=== PATIENT | male | born 1960 | race Caucasian/White ===

== ENCOUNTER 2018-02-19 22:04 | Emergency (ER) | payer BC ==
[~2018-02-19] VITALS: Ht 188 cm; Wt 113.6 kg
[2018-02-19 22:05] VITALS: TEMP 98.7
[2018-02-19 22:16] LABS: BASO # 0.1 (0.0-0.2); BASO % 0.8 % (0.0-2.0); EOS # 0.5 (0.0-0.7); EOS % 4.3 % (0-4.0); GRAN # 5.8 (1.4-6.5); GRAN % 49.7 % (42.2-75.2); HEMOGLOBIN 13.4 g/dl (13.5-18.0); LYMPH # 4.5 (1.2-3.4); LYMPH % 38.6 % (20.0-51.0); MEAN CELL VOLUME 86 fl (80.0-100.0); MEAN CORPUSCULAR HEMOGLOBIN 31 pg (27.0-31.0); MEAN CORPUSCULAR HGB CONC 36 g/dl (33.0-37.0); MEAN PLATELET VOLUME 9.7 fl (7.4-10.4); MONO # 0.7 (0.1-0.6); MONO % 6.3 % (1.7-9.3); PLATELET COUNT 227 K/mm3 (130-400); RED BLOOD COUNT 4.28 M/mm3 (4.20-5.60); REDCELL DISTRIBUTION WIDTH-CV 11.4 % (11.5-14.5)
[2018-02-19 22:18] LABS: INR 1.2 (0.8-3.0)
[2018-02-19 22:19] LABS: HEMATOCRIT 36.8 % (42.0-52.0)
[2018-02-19 22:23] LABS: ALBUMIN 2.8 gm/dL (3.5-5.0); BILIRUBIN,TOTAL 0.6 mg/dL (0.0-1.0); CALCIUM 7.2 mg/dL (8.4-10.2); CREATININE, serum 0.86 mg/dL (0.66-1.25); TOTAL PROTEIN 5.2 gm/dL (6.4-8.2)
[2018-02-19 22:25] LABS: POTASSIUM 2.7 mmol/L (3.4-5.0)
[2018-02-19 23:13] VITALS: BP 180/103; PULSE 78
== END 2018-02-19 23:15 | disposition short-term general hospital (02) ==
LOC: COL.ER 22:04
PROVIDERS: Emergency Medicine
DX: S82.492A Other fracture of shaft of left fibula, initial encounter for closed fracture (principal); S41.011A Laceration without foreign body of right shoulder, initial encounter; S20.211A Contusion of right front wall of thorax, initial encounter; T79.A22A Traumatic compartment syndrome of left lower extremity, initial encounter; E11.9 Type 2 diabetes mellitus without complications; I10 Essential (primary) hypertension; V23.4XXA Motorcycle driver injured in collision with car, pick-up truck or van in traffic accident, initial encounter
CPT/HCPCS: J3010; J7120

== ENCOUNTER 2018-06-07 11:00 | Outpatient (RCR) | payer BC | END 2018-08-10 | disposition home or self-care (01) | LOC: MKS.ESL.PT | DX: S82.401D Unspecified fracture of shaft of right fibula, subsequent encounter for closed fracture with routine healing (principal); T79.A0XD Compartment syndrome, unspecified, subsequent encounter; M50.00 Cervical disc disorder with myelopathy, unspecified cervical region; V29.9XXD Motorcycle rider (driver) (passenger) injured in unspecified traffic accident, subsequent encounter; Z79.1 Long term (current) use of non-steroidal anti-inflammatories (NSAID); Z79.82 Long term (current) use of aspirin; Z79.891 Long term (current) use of opiate analgesic; Z79.899 Other long term (current) drug therapy ==

== ENCOUNTER 2018-10-25 10:15 | Outpatient (RCR) | payer BC | END 2018-11-16 | disposition home or self-care (01) | LOC: MKS.ESL.PT | DX: Z47.89 Encounter for other orthopedic aftercare (principal); Z98.1 Arthrodesis status | CPT/HCPCS: G0283-GP ==

== ENCOUNTER 2019-02-17 00:21 | Emergency (ER) | payer BC ==
[~2019-02-17] VITALS: Ht 180.3 cm; Wt 118.2 kg
[2019-02-17 00:31] VITALS: TEMP 97.9
[2019-02-17] MEDS ORDERED: TOPROL XL 50MG50 MG PO (00:49)
[2019-02-17] MEDS ORDERED: GLUCOPHAGE XR500 M1 PO (00:49)
[2019-02-17] MEDS ORDERED: PRINIVIL20 MG PO (00:50)
[2019-02-17] MEDS ORDERED: ZOCOR 20MG20 MG PO (00:50)
[2019-02-17 00:58] LABS: BASO # 0.1 (0.0-0.2); BASO % 0.9 % (0.0-2.0); EOS # 0.4 (0.0-0.7); EOS % 4.1 % (0-4.0); GRAN # 4.1 (1.4-6.5); GRAN % 45.4 % (42.2-75.2); HEMATOCRIT 44.6 % (42.0-52.0); HEMOGLOBIN 15.8 g/dl (13.5-18.0); LYMPH # 3.6 (1.2-3.4); LYMPH % 40.4 % (20.0-51.0); MEAN CELL VOLUME 85 fl (80.0-100.0); MEAN CORPUSCULAR HEMOGLOBIN 30 pg (27.0-31.0); MEAN CORPUSCULAR HGB CONC 35 g/dl (33.0-37.0); MEAN PLATELET VOLUME 9.9 fl (7.4-10.4); MONO # 0.8 (0.1-0.6); MONO % 8.9 % (1.7-9.3); PLATELET COUNT 221 K/mm3 (130-400); RED BLOOD COUNT 5.23 M/mm3 (4.20-5.60)
[2019-02-17 01:02] LABS: PROTHROMBIN TIME 11.8 SECONDS (9.7-12.8)
[2019-02-17 01:04] LABS: ALANINE AMINOTRANSFERASE 14 U/L (21-72); ALBUMIN 4.4 gm/dL (3.5-5.0); ALKALINE PHOSPHATASE 67 U/L (50-136); ANION GAP 13 mmol/L (7-16); AST,SGOT 22 U/L (15-37); BILIRUBIN,TOTAL 0.6 mg/dL (0.0-1.0); BLOOD UREA NITROGEN 15 mg/dL (9-20); CALCIUM 9.4 mg/dL (8.4-10.2); CARBON DIOXIDE 24 mmol/L (22-30); CHLORIDE 101 mmol/L (98-107); CREATININE, serum 0.93 (0.66-1.25); GLUCOSE 197 mg/dL (74-106); SODIUM 139 mmol/L (137-145); TOTAL PROTEIN 7.9 gm/dL (6.4-8.2)
[2019-02-17 01:19] LABS: TROPONIN-I < 0.012 ng/mL (0.000-0.035)
[2019-02-17 05:03] VITALS: BP 131/79; PULSE 85
== END 2019-02-17 05:04 | disposition home or self-care (01) ==
LOC: COL.ER 00:21
PROVIDERS: Emergency Medicine
DX: R10.13 Epigastric pain (principal); E11.9 Type 2 diabetes mellitus without complications; I10 Essential (primary) hypertension; E78.5 Hyperlipidemia, unspecified; Z79.84 Long term (current) use of oral hypoglycemic drugs
CPT/HCPCS: J2270; J2765; Q9967

== ENCOUNTER → 2019-04-07 | Outpatient (CLI) | payer BC ==
[~2019-04-07] MED LIST: GLUCOPHAGE XR500 M1 PO; MOTRIN 600600 MG/TAB PO; PRINIVIL20 MG PO; TOPROL XL 50MG50 MG PO; ULTRAM 50MG TAB50 MG PO; ZANAFLEX 4MG TAB4 MG PO; ZOCOR 20MG20 MG PO
== END ==
LOC: COL.RAD 09:21
DX: R93.2 Abnormal findings on diagnostic imaging of liver and biliary tract (principal); R10.13 Epigastric pain

== ENCOUNTER 2019-04-12 08:08 | Day surgery (SDC) | payer BC ==
[2019-04-12] VITALS (8 sets, daily range): BP systolic 127–144; BP diastolic 56–70; PULSE 54–75; TEMP 98.3–98.4
[~2019-04-12] VITALS: Ht 180.3 cm; Wt 123.9 kg
[~2019-04-12 08:08] MED LIST changes: -MOTRIN 600600 MG/TAB PO; -ULTRAM 50MG TAB50 MG PO; -ZANAFLEX 4MG TAB4 MG PO
[2019-04-12] MEDS ORDERED: ZANAFLEX 4MG TAB4 MG PO (08:31)
--- NOTE | 2019-04-12 09:54 | NUR ---
Report given to TANNING CONSULTANTMIRACLE Russo, who takes patient to the OR at this time.
[2019-04-12] MEDS ORDERED: MOTRIN 600600 MG/TAB PO (12:21)
[2019-04-12] MEDS ORDERED: ULTRAM 50MG TAB50 MG PO (12:23)
--- NOTE | 2019-04-12 13:05 | NUR ---
Patient arrives to [facility] via cart from PACU, accompanied by PIPE CLEANER Magui. He is sleepy, but arousable to name and oriented. His operative sites x 5 are clean, dry, intact. Abdomen is soft and tender. He denies any pain or nausea at this time. His is brought to the bedside for recovery. Post-operative vital signs started - VSS and WNL on 2L nasal cannula. Will continue to monitor.
--- NOTE | 2019-04-12 13:20 | NUR ---
VSS and WNL on 2 L nasal cannula. Patient is sleeping.
--- NOTE | 2019-04-12 13:35 | NUR ---
VSS and WNL on room air. Patient is resting comfortably in room.
--- NOTE | 2019-04-12 13:50 | NUR ---
Patient offered and receives water to drink. Denies food at this time.
--- NOTE | 2019-04-12 14:20 | NUR ---
Patient resting comfortably in room. VSS and WNL on room air.
--- NOTE | 2019-04-12 14:50 | NUR ---
Oxygen turned off. VSS and WNL on room air.
--- NOTE | 2019-04-12 15:57 | NUR ---
Assisted patient to restroom with use of cane and standby assist at 1540. Patient voids and returns to room. Complains of nausea and mild pain in abdomen. Given PRN IV Zofran.
--- NOTE | 2019-04-12 15:58 | NUR ---
Report given to Radha Post RN at this time.
--- NOTE | 2019-04-12 16:30 | NUR ---
Eating jello and crackers. States that he is continuing to have mild nausea. Spouse at side.
--- NOTE | 2019-04-12 16:40 | NUR ---
Tolerated crackers and jello. Given Motrin 600mg po.
--- NOTE | 2019-04-12 17:06 | NUR ---
Patient was given dismissal instructions and voices understanding of these. Provided scripts for Ultram and Motrin. Provided office number for questions and concerns. Dismissed to home per private vehicle driven by spouse and taken to the front door per wheelchair by Janet RAUSCH and assisted into vehicle.
== END 2019-04-12 17:03 | disposition home or self-care (01) ==
LOC: SDCO 08:08
DX: K80.10 Calculus of gallbladder with chronic cholecystitis without obstruction (principal); E11.9 Type 2 diabetes mellitus without complications; I10 Essential (primary) hypertension; K76.0 Fatty (change of) liver, not elsewhere classified; Z79.84 Long term (current) use of oral hypoglycemic drugs; Z82.5 Family history of asthma and other chronic lower respiratory diseases; Z82.49 Family history of ischemic heart disease and other diseases of the circulatory system; Z88.5 Allergy status to narcotic agent; Z88.0 Allergy status to penicillin
CPT/HCPCS: J0330; J0690; J1100; J1610; J1815; J1885; J2405; J2550; J2704; J3010; J7120; Q9967

== ENCOUNTER 2019-12-05 12:45 | Outpatient (RCR) | payer BC ==
[~2019-12-05 12:45] MED LIST changes: +MOTRIN 600600 MG/TAB PO; +ULTRAM 50MG TAB50 MG PO; +ZANAFLEX 4MG TAB4 MG PO
== END 2019-12-07 | disposition still patient (30) ==
LOC: WSPT
DX: G57.92 Unspecified mononeuropathy of left lower limb (principal); V29.9XXA Motorcycle rider (driver) (passenger) injured in unspecified traffic accident, initial encounter

== ENCOUNTER 2019-12-08 08:17 | Outpatient (RCR) | payer BC ==
[~2019-12-08 08:17] MED LIST changes: -TOPROL XL 50MG50 MG PO; +TOPROL XL100 MG PO
[2020-02-09] MEDS ORDERED: FLEXERIL 1010 MG/TAB PO (21:43)
== END 2020-03-07 | disposition home or self-care (01) ==
LOC: WSPT
DX: G57.92 Unspecified mononeuropathy of left lower limb (principal); V29.9XXA Motorcycle rider (driver) (passenger) injured in unspecified traffic accident, initial encounter

== ENCOUNTER 2020-02-09 20:29 | Emergency (ER) | payer BC ==
[~2020-02-09] VITALS: Ht 180.3 cm; Wt 129.5 kg
[2020-02-09 20:32] VITALS: BP 197/93; TEMP 98.2
[2020-02-09] MEDS ORDERED: FLEXERIL 1010 MG/TAB PO (21:43)
[2020-02-09 21:56] VITALS: PULSE 75
== END 2020-02-09 21:56 | disposition home or self-care (01) ==
LOC: COL.ER 20:29
DX: S13.4XXA Sprain of ligaments of cervical spine, initial encounter (principal); E11.9 Type 2 diabetes mellitus without complications; I10 Essential (primary) hypertension; Z79.84 Long term (current) use of oral hypoglycemic drugs; V43.52XA Car driver injured in collision with other type car in traffic accident, initial encounter

== ENCOUNTER 2021-07-08 20:10 | Inpatient (IN) | payer BC ==
[~2021-07-08] VITALS: Ht 177.8 cm; Wt 125.0 kg
[~2021-07-08 20:10] MED LIST changes: +FLEXERIL 1010 MG/TAB PO
[2021-07-08 21:08] LABS: BASO % 0.3 % (0.0-2.0); EOS # 0.1 K/mm3 (0.0-0.7); EOS % 0.4 % (0-4.0); GRAN # 9.7 K/mm3 (1.4-6.5); GRAN % 86.6 % (42.2-75.2); HEMATOCRIT 45.6 % (42.0-52.0); HEMOGLOBIN 16.3 g/dl (13.5-18.0); LYMPH # 0.7 K/mm3 (1.2-3.4); LYMPH % 6.3 % (20.0-51.0); MEAN CELL VOLUME 85 fl (80.0-100.0); MEAN CORPUSCULAR HEMOGLOBIN 31 pg (27.0-31.0); MEAN CORPUSCULAR HGB CONC 36 g/dl (33.0-37.0); MEAN PLATELET VOLUME 10.1 fl (7.4-10.4); MONO # 0.7 K/mm3 (0.1-0.6); MONO % 5.9 % (1.7-9.3); PLATELET COUNT 127 K/mm3 (130-400); RED BLOOD COUNT 5.34 M/mm3 (4.20-5.60)
[2021-07-08 21:31] LABS: ALBUMIN 4.1 gm/dL (3.5-5.0); BILIRUBIN,TOTAL 1.1 mg/dL (0.2-1.2); CALCIUM 9.2 mg/dL (8.4-10.2); CREATININE, serum 1.36 mg/dL (0.72-1.25); POTASSIUM 3.5 mmol/L (3.5-4.5); TOTAL PROTEIN 7.6 gm/dL (6.2-8.1)
[2021-07-08] MEDS ORDERED: TRULICITY1.5 MG/0.5 SQ (23:43)
[2021-07-09] VITALS (11 sets, daily range): BP systolic 112–186; BP diastolic 44–93; PULSE 83–109; TEMP 97.8–102.1
[2021-07-09] MEDS ORDERED: HCTZ 25MG TAB25 MG PO (01:58)
--- NOTE | 2021-07-09 02:22 | NUR ---
Vancomycin Initial Dosing Pharmacy Note Ordering provider: Sang Monsivais MD Indication/duration: LLE CELLULITIS / 5 DAYS Trough goal: 10-20 DOSING HX: NONE IDENTIFIED BMI: 39.5 WT: 125 KG ADJBW: 94 KG SCR: 1.36 ADJBW ESTCRCL ~ 79 ML/MIN T 1/2 ~10H TMAX: 102.9 HR>120, BP>170 WBC: 11.2 LA: 1.5 MICRO IN PROCESS NO IMAGING OF LLE CELLULITIS AT THIS TIME PT RECEIVED VANCO 1.5GM X1 IN ED. WILL START A MAINTENANCE REGIMEN OF 1GM Q12H, WILL BEGIN THIS SLIGHTLY EARLY TO ACCOUNT FOR SUB-OPTIMAL LOADING DOSE. WILL FOLLOW RENAL FUNCTION, MICRO, AND TREATMENT PLAN FOR NEED TO [facility] THERAPY. THANK YOU FOR THIS DOSING CONSULT!
--- NOTE | 2021-07-09 03:21 | NUR ---
Patient arrived medical floor room 353 from ER around 02:10 am. Patient A/Ox4. Patient states feeling much better since he came to the hospital. Patient reports heavy pressure to his left lower leg intermittently. Patient denies pain med at this time. Patient denies SOB or N/V. Patient currently on room air and afebrile at this time. Left lower leg cellulitis site reddened and slightly swollen. Elevated left leg on the pillow. Scheduled meds given per MAR. IVF infusing per MAR. Oriented patient to the room. Call light in reach. Will continue to monitor.
--- NOTE | 2021-07-09 06:45 | NUR ---
appears to be dozing, awakens easily and bedside shift report received from MIRACLE Rodriguez
[2021-07-09 07:14] LABS: COLLECTION METHOD CLEAN CATCH
[2021-07-09 07:20] LABS: PH 5 (5-8); SQUAMOUS EPITHELIAL None Seen /hpf; URINE APPEARANCE Clear; URINE BACTERIA Rare /hpf; URINE BILIRUBIN Negative (NEGATIVE); URINE BLOOD Negative (NEGATIVE); URINE COLOR Yellow; URINE GLUCOSE 3+ (NEGATIVE); URINE KETONE Trace (NEGATIVE); URINE LEUKOCYTE ESTERASE Negative (NEGATIVE); URINE NITRATE Negative (NEGATIVE); URINE PROTEIN(semi-quant) Negative (NEGATIVE); URINE RBC 0-2 /hpf; URINE UROBILINOGEN Negative (NEGATIVE)
[2021-07-09 07:26] LABS: BASO % 0.3 % (0.0-2.0); EOS % 0.1 % (0-4.0); GRAN # 11.1 K/mm3 (1.4-6.5); GRAN % 87.8 % (42.2-75.2); HEMATOCRIT 41.9 % (42.0-52.0); LYMPH # 0.8 K/mm3 (1.2-3.4); LYMPH % 6.6 % (20.0-51.0); MEAN CELL VOLUME 85 fl (80.0-100.0); MEAN CORPUSCULAR HEMOGLOBIN 31 pg (27.0-31.0); MEAN CORPUSCULAR HGB CONC 36 g/dl (33.0-37.0); MEAN PLATELET VOLUME 9.8 fl (7.4-10.4); MONO # 0.6 K/mm3 (0.1-0.6); MONO % 4.6 % (1.7-9.3); PLATELET COUNT 138 K/mm3 (130-400); RED BLOOD COUNT 4.91 M/mm3 (4.20-5.60); REDCELL DISTRIBUTION WIDTH-CV 12.2 % (11.5-14.5)
--- NOTE | 2021-07-09 07:45 | NUR ---
sitting up in bed and has had breakfast and tolerated well, full assessment completed, see interventions for further info, denies needs at this time
--- NOTE | 2021-07-09 09:40 | NUR ---
resting in bed, is now at bedside, spoke with her regarding plan of care, both she and the patient verbalize understanding
--- NOTE | 2021-07-09 10:55 | NUR ---
c/o pain 03/07 to left lower extremity, medicated with roxicodone 5mg po, dr Monsivais and care team in to see patient, he is resting in bed with left leg elevated up on pillow and folded blanket
--- NOTE | 2021-07-09 11:14 | NUR ---
odd job worker met with patient to discuss discharge plan. Patient lives at home with his Bonnie ([phone]) in [place]. Patient reports to being fully independent with his activities of daily living and uses a cane PRN. PCP was Dr. Joyner at [facility] but has recently moved. Is unsure of who his new PCP but knows it is a male. Patient utilizes [facility] for medications and up to this point has had no trouble affording his medications, but verbalizes concerns over a new medication he is starting. States he does have a DPOA-HC established and that his agent is his .Patient is planning on returning home post dc with no other concerns. Request made to the physican for PT eval. Discharge plan: Home
--- NOTE | 2021-07-09 11:36 | NUR ---
medical technologist generalist in completing doppler of left lower extremity
--- NOTE | 2021-07-09 12:10 | NUR ---
no relief from roxicodone given earlier, technical publications writer continueing doppler of leg and patient state pain is 06/07, Dr Monsivais notified, medicatd with morphine 2mg slow IV, BP >170 and medicated with apresoline 10mg slow IV, Temp 102.1 and given t ylenol 650mg po, ultrasound completed and he is encouraged to rest at thi time, will monitor
--- NOTE | 2021-07-09 12:48 | NUR ---
awakens easily, states pain is now 6/10 and is better because he has been sleeping, has ordered lunch
--- NOTE | 2021-07-09 13:45 | NUR ---
resting in bed after having lunch, VS rechecked after tylenol and apresoline given, Temp is 101.1 and heart rate is now 101, bP is 149/70, physical therapy in to visit with patient
--- NOTE | 2021-07-09 15:00 | NUR ---
ready to get up and get cleaned up, is up independently to bathroom and shower
--- NOTE | 2021-07-09 16:00 | NUR ---
up to chair aftre showering, TEMP is now down to 99.9 and BP down 131/72, states pain is also better at 5/10, denies needs at this time
--- NOTE | 2021-07-09 17:25 | NUR ---
at bedside again now, given update on patinet's day, verbalizes understanding
--- NOTE | 2021-07-09 18:30 | NUR ---
c/o chilling and back to bed, provided warm blanket, Temp 97.8
[2021-07-09 18:41] LABS: CALCIUM 8.6 mg/dL (8.4-10.2); CREATININE, serum 1.3 mg/dL (0.72-1.25); POTASSIUM 3.4 mmol/L (3.4-5.0)
--- NOTE | 2021-07-09 18:46 | NUR ---
bedside shift report bear Rodriguez RN
--- NOTE | 2021-07-09 23:21 | NUR ---
Patient alert and oriented. Patient reports mild pain to left lower leg area but denies need for pain medication at this time. Temp 100.5 and BP 186/84 around 1999. PRN Tylenol given for pain and PRN hydralazine given for SBP >170. IVF infusing well per MAR. Left lower leg cellulitis site still remains reddended. Noticed some reddened areas to left upper thigh and groin. Called ABHINAV Bustillos and updated. Patient states feeling hot. Ice pack provided to left leg. Call light in reach. Will continue to monitor.
[2021-07-10 00:05] VITALS: BP 170/70; PULSE 103; TEMP 100.1
[2021-07-10 04:25] VITALS: BP 156/75; PULSE 104; TEMP 100.3
--- NOTE | 2021-07-10 06:08 | NUR ---
left upper thigh and scrotum area remains reddened. Patient denies itching. Reports increased pain to left leg and thigh over the night. ABHINAV Bustillos came to the room and see the patient. Per ABHINAV Bustillos, discontinued Rocephin and started Zosyn. PRN Morphine given x2 over the night for increased pain. All scheduled antibiotics given per NOV. Highest temp was 100.5 last night. PRN Tylenol given temp >100.0
[2021-07-10 06:50] VITALS: BP 159/72; PULSE 100; TEMP 99.9
--- NOTE | 2021-07-10 06:50 | NUR ---
Assessment completed. Patient in bed. Temp 99.9F. RI 100 bpm, primary nurse notified. Patient presents flushing of the face. NS @ 100mL/hr and Vancomycin @ 250mL/hr. Intact on L forearm; no phlebitis noted. LLE with erythema and non-pitting edema, warm to touch. Complaints of pain to LLE. CMS checks to LLE within normal limits. Patient reports an upset stomach. Denies N/V.
--- NOTE | 2021-07-10 07:00 | NUR ---
Report with MIRACLE Rodriguez. Pt resting in bed, awake and alert, student nurse assessing at this time. No needs reported. Call light in reach.
--- NOTE | 2021-07-10 10:00 | NUR ---
Assessment entered by student nurse reviewed and agreed by this nurse.
--- NOTE | 2021-07-10 10:28 | NUR ---
Initial visit; Patient thanked Plant Protection Officer for offering God's blessings and keeping him in Plant Protection Officer's prayers.
[2021-07-10 11:15] VITALS: BP 142/61; PULSE 80; TEMP 98.5
[2021-07-10 17:14] VITALS: BP 170/75; PULSE 79; TEMP 98.4
--- NOTE | 2021-07-10 17:30 | NUR ---
Pt resting in bed, awakens when nurse enters room and denies needs, reports pain is tolerable at this time. IVF's continue per orders. Pt still with decreased appetite but denies nausea. Pt's at bedside. Call light in reach.
--- NOTE | 2021-07-10 19:05 | NUR ---
Report to MIRACLE Hdez.
[2021-07-10 20:07] VITALS: BP 180/96; PULSE 95; TEMP 101.1
--- NOTE | 2021-07-10 21:45 | NUR ---
Patient assessed. Denies having pain and discomfort. Peripheral IV to left forearm with fluids and IV ABX running per order. Denies SOB and dyspnea. LS CTA in upper lobes, diminished in lower. Respirations even and unlabored. 1+ edema LLE, with redness, warmth, and swelling. Patient's BP elevated, given scheduled Metoprolol. Patient's fever 101. Given PRN APAP and Motrin. Given Zofran for nausea. Updated ABHINAV Bustillos.
[2021-07-11 00:53] VITALS: BP 168/87; PULSE 81; TEMP 98.4
[2021-07-11 05:13] LABS: BASO % 0.4 % (0.0-2.0); EOS # 0.1 K/mm3 (0.0-0.7); EOS % 1.8 % (0-4.0); GRAN # 5.3 K/mm3 (1.4-6.5); GRAN % 73.5 % (42.2-75.2); HEMATOCRIT 38.1 % (42.0-52.0); HEMOGLOBIN 13.1 g/dl (13.5-18.0); LYMPH # 1.3 K/mm3 (1.2-3.4); LYMPH % 17.7 % (20.0-51.0); MEAN CELL VOLUME 88 fl (80.0-100.0); MEAN CORPUSCULAR HEMOGLOBIN 30 pg (27.0-31.0); MEAN CORPUSCULAR HGB CONC 34 g/dl (33.0-37.0); MEAN PLATELET VOLUME 10.1 fl (7.4-10.4); MONO # 0.4 K/mm3 (0.1-0.6); PLATELET COUNT 140 K/mm3 (130-400); RED BLOOD COUNT 4.34 M/mm3 (4.20-5.60); REDCELL DISTRIBUTION WIDTH-CV 12.6 % (11.5-14.5)
[2021-07-11 05:30] VITALS: BP 166/77; PULSE 71; TEMP 98.4
[2021-07-11 05:30] LABS: CALCIUM 8.5 mg/dL (8.4-10.2); CREATININE, serum 0.91 mg/dL (0.72-1.25); POTASSIUM 3.3 mmol/L (3.5-4.5)
--- NOTE | 2021-07-11 05:45 | NUR ---
Patient has denied having pain and discomfort this shift. Patient has voiced no questions, needs, or concerns this shift. Continues on IV ABXs per orders. Vanc trough came back low at 7.3. Patient taking 1 gram of Vanc. Called pharmacy and spoke with Jim to see if dose needed adjusted. No changes at this time. Hung Vanc per orders. Patient resting in bed with call light within reach.
--- NOTE | 2021-07-11 06:39 | NUR ---
Vancomycin Follow-up Pharmacy Note Current regimen: Vancomycin 1 gm IV q12h Vancomycin trough: 7.3 Adjustments: Increase Vancomycin to 1 gm IV q8h. Pharmacy will continue to closely monitor and check a Vancomycin trough on 07/12/21.
[2021-07-11 08:00] VITALS: BP 165/71; PULSE 80; TEMP 99.6
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
--- NOTE | 2021-07-11 09:10 | NUR ---
STOOL COLLECTED AND SENT TO LAB
[2021-07-11 10:56] LABS: CLOSTRIDIUM DIFF A/B NEG; CLOSTRIDIUM DIFF A/B INTERP No C.diff present
[2021-07-11 11:04] VITALS: BP 154/72; PULSE 72; TEMP 98.3
--- NOTE | 2021-07-11 11:50 | NUR ---
HOSPITALIST TEAM ROUNDING, SEE NEW ORDERS.
[2021-07-11 15:27] VITALS: BP 167/76; PULSE 81; TEMP 98
--- NOTE | 2021-07-11 20:08 | NUR ---
Patient assessed. Reports level 5 pain to LLE. Given PRN APAP as requested for pain. LLE continues to be red, warmth, and swollen. Continues on have upset stomach. Had been given PRN Mirza around 1700. Continues on IV ABX per orders. Patient voices no questions, needs, or concerns at this time. Resting in bed with call light within reach.
[2021-07-11 20:21] VITALS: BP 163/74; PULSE 76; TEMP 98.9
[2021-07-12] VITALS (7 sets, daily range): BP systolic 171–204; BP diastolic 73–91; PULSE 66–90; TEMP 98–99.7
--- NOTE | 2021-07-12 01:04 | NUR ---
BP 192/87. Given PRN Appresoline at this time.
--- NOTE | 2021-07-12 04:38 | NUR ---
BP 184/75. Given PRN Appresoline. Complaining of pain to LLE. Given PRN APAP as requested. Voices no further questions, needs, or concerns at this time. Resting in bed with call light within reach.
[2021-07-12 07:16] LABS: HEMATOCRIT 39.9 % (42.0-52.0); HEMOGLOBIN 13.6 g/dl (13.5-18.0); MEAN CELL VOLUME 89 fl (80.0-100.0); MEAN CORPUSCULAR HEMOGLOBIN 30 pg (27.0-31.0); MEAN CORPUSCULAR HGB CONC 34 g/dl (33.0-37.0); MEAN PLATELET VOLUME 10.1 fl (7.4-10.4); PLATELET COUNT 188 K/mm3 (130-400); RED BLOOD COUNT 4.48 M/mm3 (4.20-5.60); REDCELL DISTRIBUTION WIDTH-CV 12.7 % (11.5-14.5)
[2021-07-12 07:30] LABS: CALCIUM 8.5 mg/dL (8.4-10.2); CREATININE, serum 0.85 mg/dL (0.72-1.25); MAGNESIUM 1.5 mg/dL (1.6-2.6); POTASSIUM 3.3 mmol/L (3.5-4.5)
--- NOTE | 2021-07-12 10:49 | NUR ---
Patient laying in bed upon entering the room, is at the bedside. Patient was nauseated, PRN promethazine was ordered and administered. Patient is feeling slightly better after administration is currently sleeping. BP was elevated but PRN apresoline was held as patient's scheduled metoprolol and lisinopril were administered.
[2021-07-12 13:25] LABS: MAGNESIUM 2.5 mg/dL (1.6-2.6); POTASSIUM 3.2 mmol/L (3.5-4.5)
[2021-07-13 04:44] VITALS: BP 195/76; PULSE 78; TEMP 98.3
[2021-07-13 06:31] LABS: BASO # 0.1 K/mm3 (0.0-0.2); BASO % 0.7 % (0.0-2.0); EOS # 0.1 K/mm3 (0.0-0.7); EOS % 1.6 % (0-4.0); GRAN # 5.5 K/mm3 (1.4-6.5); GRAN % 74.9 % (42.2-75.2); HEMATOCRIT 41.5 % (42.0-52.0); HEMOGLOBIN 14.3 g/dl (13.5-18.0); LYMPH # 1.1 K/mm3 (1.2-3.4); LYMPH % 14.7 % (20.0-51.0); MEAN CELL VOLUME 88 fl (80.0-100.0); MEAN CORPUSCULAR HEMOGLOBIN 30 pg (27.0-31.0); MEAN CORPUSCULAR HGB CONC 35 g/dl (33.0-37.0); MEAN PLATELET VOLUME 9.6 fl (7.4-10.4); MONO # 0.5 K/mm3 (0.1-0.6); PLATELET COUNT 197 K/mm3 (130-400); RED BLOOD COUNT 4.72 M/mm3 (4.20-5.60); REDCELL DISTRIBUTION WIDTH-CV 12.6 % (11.5-14.5)
[2021-07-13 06:50] LABS: CREATININE, serum 1.24 mg/dL (0.72-1.25); MAGNESIUM 1.9 mg/dL (1.6-2.6); POTASSIUM 3.5 mmol/L (3.5-4.5)
--- NOTE | 2021-07-13 08:06 | NUR ---
REPORT RECEIVED FROM MIRACLE VILCHIS. PT ASLEEP IN BED. BREATHING REG/UNLABORED. CALL BARBOUR IN REACH.
[2021-07-13 08:07] VITALS: BP 198/83; PULSE 76; TEMP 98.6
[2021-07-13 11:46] VITALS: BP 202/85; PULSE 69; TEMP 98.3
--- NOTE | 2021-07-13 12:16 | NUR ---
RECIEVED MED ORDERS FOR PT HIGH BP FROM MD CE. ORDERS READ BACK AND VERIFIED. REQUESTED THIS NURSE TO PUT ORDERS IN
[2021-07-13] MEDS ORDERED: ZOFRAN 4MG T4 MG/TAB PO (13:13)
[2021-07-13] MEDS ORDERED: DOXYCYCLINE HY100 MG PO (13:14)
[2021-07-13] MEDS ORDERED: CEPHALEXIN500 M1 PO (13:15)
[2021-07-13] MEDS ORDERED: LOPRESSOR100 MG PO ×3 (13:17→17:06)
[2021-07-13 14:47] VITALS: BP 177/81
--- NOTE | 2021-07-13 17:15 | NUR ---
DISCHARGE INSTRUCTIONS REVEIWED WITH PATIENT. QUESTIONS INVITED AND ANSWERED. IV REMOVED. [employer] EMPLOYEE WHEELED PT TO CAR
== END 2021-07-13 16:15 | disposition home or self-care (01) | DRG 872 ==
LOC: COL.ER 20:10 → MEDICAL 23:13
PROVIDERS: Internal Medicine; Personal Emergency Response Attendant; Physician Assistant; Student in an Organized Health Care Education/Training Program; ADMIT Internal Medicine
DX: A41.9 Sepsis, unspecified organism (principal); L03.116 Cellulitis of left lower limb; N17.9 Acute kidney failure, unspecified; K52.1 Toxic gastroenteritis and colitis; I10 Essential (primary) hypertension; E11.9 Type 2 diabetes mellitus without complications; E86.0 Dehydration; D69.6 Thrombocytopenia, unspecified; Z66 Do not resuscitate; T36.95XA Adverse effect of unspecified systemic antibiotic, initial encounter; E87.6 Hypokalemia; E83.42 Hypomagnesemia; G47.33 Obstructive sleep apnea (adult) (pediatric); E66.9 Obesity, unspecified; Z20.822 Contact with and (suspected) exposure to COVID-19
CPT/HCPCS: 99223-AI; 99232-AI; 99233-AI; 99239; J0360; J0696; J1644; J1650; J1815; J2270; J2543; J2550; J3370; J3475; J7030; J7050; J7120

== ENCOUNTER 2022-03-03 11:40 | Emergency (ER) | payer BC ==
[~2022-03-03] VITALS: Ht 180.3 cm; Wt 109.1 kg
[~2022-03-03 11:40] MED LIST changes: +CEPHALEXIN500 M1 PO; +DOXYCYCLINE HY100 MG PO; +HCTZ 25MG TAB25 MG PO; +LOPRESSOR100 MG PO; +TRULICITY1.5 MG/0.5 SQ; +ZOFRAN 4MG T4 MG/TAB PO
[2022-03-03 11:45] VITALS: TEMP 97.9
[2022-03-03 12:28] LABS: BASO # 0.1 K/mm3 (0.0-0.2); BASO % 0.8 % (0.0-2.0); EOS # 0.2 K/mm3 (0.0-0.7); EOS % 2.7 % (0.0-4.0); GRAN # 4.1 K/mm3 (1.4-6.5); GRAN % 64.7 % (42.2-75.2); HEMOGLOBIN 14.6 g/dl (13.5-18.0); LYMPH # 1.6 K/mm3 (1.2-3.4); MEAN CELL VOLUME 86 fl (80.0-100.0); MEAN CORPUSCULAR HEMOGLOBIN 31 pg (27-31); MEAN CORPUSCULAR HGB CONC 36 g/dl (33.0-37.0); MEAN PLATELET VOLUME 9.2 fl (7.4-10.4); MONO # 0.4 K/mm3 (0.1-0.6); MONO % 6.6 % (1.7-9.3); PLATELET COUNT 187 K/mm3 (130-400); RED BLOOD COUNT 4.78 M/mm3 (4.20-5.60); REDCELL DISTRIBUTION WIDTH-CV 12.4 % (11.5-14.5)
[2022-03-03 12:55] LABS: ALBUMIN 3.8 gm/dL (3.5-5.0); CREATININE, serum 1.13 mg/dL (0.72-1.25); POTASSIUM 3.6 mmol/L (3.5-4.5); TOTAL PROTEIN 6.7 gm/dL (6.2-8.1)
[2022-03-03 13:00] VITALS: BP 145/84; PULSE 75
== END 2022-03-03 13:17 | disposition home or self-care (01) ==
LOC: COL.ER 11:40
PROVIDERS: Family Medicine
DX: I10 Essential (primary) hypertension (principal)

== ENCOUNTER 2023-10-09 10:21 | Day surgery (SDC) | payer BC ==
[~2023-10-09] VITALS: Ht 177.8 cm; Wt 87.0 kg
[~2023-10-09 10:21] MED LIST changes: +LR 1,000 ML IV SCH; +Ondansetron 4 MG/2 ML VIAL IV PRN
[2023-10-09] MEDS ORDERED: Lidocaine PF 2% (20 MG/ML) 5 ML VIAL ONE (10:34)
[2023-10-09] MEDS ORDERED: PRINIVIL40 MG PO (10:51)
[2023-10-09] MEDS ORDERED: VICTOZA6 MG/ML SQ (10:52)
[2023-10-09] MEDS ORDERED: ANDROGEL1.62% TOP (10:53)
[2023-10-09 11:09] VITALS: BP 131/82; PULSE 74; TEMP 97.6
[2023-10-09 11:40] VITALS: BP 125/80; PULSE 74; TEMP 97
[2023-10-09 11:55] VITALS: BP 133/79; PULSE 73
[2023-10-09 12:10] VITALS: BP 145/82; PULSE 61
--- NOTE | 2023-10-09 13:04 | NUR ---
1140-PATIENT ARRIVED VIA CART TO [facility], ALERT ON ARRIVAL. PATIENT AMBULATED TO RECLINER WITH ASSISTANCE, WARM BLANKETS PROVIDED. VITAL SIGNS TAKEN, VSS. PT DENIES PAIN OR NAUSEA. REPORT OBTAINED FROM MIRACLE REECE. UPDATE GIVEN TO PATIENT AND SPOUSE AT BEDSIDE. 1155-VSS. PT TOLERATING PO INTAKE WITHOUT COMPLAINT 1210-DISCHARGE INSTRUCTIONS REVIEWED WITH PT, QUESTIONS INVITED. 1215-IV CATHETER DISCONTINUED, TIP INTACT. PRESSURE HELD AND BANDAGE APPLIED. PATIENT DRESSED INDEPENDENTLY. 1220-PATIENT DISCHARGED HOME TO [facility] VIA WHEELCHAIR, ACCOMPANIED BY SPOUSE. ALL BELONGINGS AND D/C PAPERWORK SENT WITH PT.
== END 2023-10-09 12:20 | disposition home or self-care (01) ==
LOC: SDCO 10:21
DX: Z12.11 Encounter for screening for malignant neoplasm of colon (principal); I10 Essential (primary) hypertension; Z79.899 Other long term (current) drug therapy
CPT/HCPCS: J2704; J7120

== ENCOUNTER 2024-01-22 08:51 | Emergency (ER) | payer BC ==
[~2024-01-22] VITALS: Ht 177.8 cm; Wt 88.2 kg
[~2024-01-22 08:51] MED LIST changes: +ANDROGEL1.62% TOP; -LR 1,000 ML IV SCH; -Ondansetron 4 MG/2 ML VIAL IV PRN; +PRINIVIL40 MG PO; +VICTOZA6 MG/ML SQ
[2024-01-22 08:54] VITALS: BP 178/96; TEMP 98.4
[2024-01-22] MEDS ORDERED: Bacitracin Topical Oint 30 GM TUBE TOP ONE (09:15)
[2024-01-22 10:50] VITALS: PULSE 78
== END 2024-01-22 10:49 | disposition home or self-care (01) ==
LOC: COL.ER 08:51
DX: S91.202A Unspecified open wound of left great toe with damage to nail, initial encounter (principal); W22.8XXA Striking against or struck by other objects, initial encounter; Y92.009 Unspecified place in unspecified non-institutional (private) residence as the place of occurrence of the external cause